=== PATIENT | female | born 1975 | race African-American/Black ===

== ENCOUNTER 2020-08-18 09:34 | Emergency (ER) | payer OTHER ==
[2020-08-18 09:47] VITALS: BP 185/108; PULSE 98; TEMP 98.2; BMI 60.2
[2020-08-18] MEDS ORDERED: IBUPROFEN 400 MG TABLET (FP) PO ONE ×2 (10:19→10:26)
== END 2020-08-18 11:45 | disposition home or self-care (01) ==
LOC: JER 09:34 → JERFT 09:34
PROC: 2W3DX1Z Immobilization of Left Lower Arm using Splint (ICD-10-PCS; principal; 2020-08-18)
DX: S62.102A Fracture of unspecified carpal bone, left wrist, initial encounter for closed fracture (principal)
CPT/HCPCS: 73110-TC-LT-FY; 73130-TC-LT-FY; 99284-25; C9803; U0003